=== PATIENT | female | born 1980 | race American Indian/Alaskan Native ===

== ENCOUNTER 2017-01-21 13:50 | Inpatient (IN) | payer OTHER, MEDICAID ==
[2017-01-21] MEDS ORDERED: POLYCILLIN/NS 2 GM/100 ML 2 GM/100 ML BAG IV ONE (15:42)
[2017-01-21] MEDS ORDERED: BRETHINE SUB-Q PRN (15:56)
[2017-01-21] MEDS ORDERED: MINERAL OIL PO PRN (15:56)
[2017-01-21] MEDS ORDERED: XYLOCAINE 2% INFILTRATI ONE (15:56)
[2017-01-21] MEDS ORDERED: BRETHINE IVP PRN (15:56)
[2017-01-21] MEDS ORDERED: ePHEDrine SULFATE IV PRN ×2 (15:56→21:26)
[2017-01-21] MEDS ORDERED: SUBLIMAZE IV PRN (15:56)
[2017-01-21] MEDS ORDERED: LACTATED RINGERS 1,000 ML IV SCH (16:00)
[2017-01-21] MEDS ORDERED: PITOCin/NS 30 UNIT/500ML 30 UNITS/500 ML BAG IV SCH (16:00)
[2017-01-21] MEDS ORDERED: PITOCin/NS 20 UNIT/1000ML DRIP 20 UNITS/1,000 ML BAG IV SCH (16:00)
[2017-01-21 16:36] LABS: Hematocrit 29.1 % (30.3-42.9); Hemoglobin 8.9 gm/dl (10.1-14.3); Mean Corpuscular HGB Conc 31 % (30-34); Mean Corpuscular Volume 74 fl (79-97); Platelet Count 184 K/mm3 (140-440); Red Blood Count 3.92 M/mm3 (3.65-5.03); Red Cell Distribution Width 16.3 % (13.2-15.2); White Blood Count 7.2 K/mm3 (4.5-11.0)
[2017-01-21 16:37] LABS: Mean Corpuscular Hemoglobin 23 pg (28-32)
[2017-01-21] MEDS: LACTATED RINGERS 1,000 ML IV SCH ×3 (18:23→22:39)
[2017-01-21] MEDS ORDERED: POLYCILLIN/NS 1 GM/50 ML 1 GM/50 ML BAG IV SCH (19:58)
[2017-01-21] MEDS ORDERED: ePHEDrine SULFATE ONE (20:52)
[2017-01-21] MEDS ORDERED: NARCAN 2 MG/2 ML IV PRN (21:26)
--- NOTE | 2017-01-21 21:26 | Anesthesia Consultation ---
Anesthesia Consult and Med Hx Date of service: 01/21/17 - Airway Anesthetic Teeth Evaluation: Good ROM Head & Neck: Adequate Mental/Hyoid Distance: Adequate Mallampati Class: Class II Intubation Access Assessment: Good - Pulmonary Exam CTA: Yes - Cardiac Exam Cardiac Exam: No Murmur - Pre-Operative Health Status ASA Pre-Surgery Classification: ASA2 Proposed Anesthetic Plan: Epidural - Pulmonary Hx Asthma: No COPD: No Hx Pneumonia: No - Cardiovascular System Hx Hypertension: No - Central Nervous System Hx Seizures: No Hx Psychiatric Problems: No - Endocrine Hx Renal Disease: No Hx End Stage Renal Disease: No Hx Hypothyroidism: No Hx Hyperthyroidism: No - Hematic Hx Anemia: Yes Hx Sickle Cell Disease: No - Other Systems Hx Alcohol Use: No
[2017-01-21] MEDS ORDERED: fentaNYL-BUPIV 2 MCG/ML-0.125% 200 MCG/100 ML BAG EPIDURAL SCH (22:00)
--- NOTE | 2017-01-22 01:50 | History and Physical Report ---
History of Present Illness Date of examination: 01/21/17 Date of admission: 01/21/17 16:44 Chief complaint: My water broke History of present illness: patient is a 36 year old who presents at 41 weeks with complaint of rupture of membranes. Her course was complicated by late presentation to care at 19 weeks. Past History Past Medical History: no pertinent history Past Surgical History: no surgical history Family/Genetic History: none Social history: - Obstetrical History Expected Date of Delivery: 01/15/17 Actual Gestation: 41 Week(s) 0 Day(s) : 5 Para: 4 Hx # Term Pregnancies: 4 Number of Living Children: 4 Medications and Allergies Allergies Allergy/AdvReac Type Severity Reaction Status Date / Time No Known Allergies Allergy Verified 01/21/17 14:23 Home Medications Medication Instructions Recorded Confirmed Last Taken Type Vit-Fe Fumar-FA [ 1 tab PO QDAY 01/21/17 01/21/17 01/19/17 09: 00 History Vitamin] 1 Active Meds: Active Medications Fentanyl (Sublimaze) 100 mcg IV Q2H PRN PRN Reason: Labor Pain Lactated Ringer's (Lactated Ringers) 1,000 mls @ 125 mls/hr IV DIRECT MARY Last Admin: 01/21/17 22:39 Dose: 125 mls/hr Ampicillin Sodium (Polycillin/Ns 1 Gm/50 Ml) 1 gm in 50 mls @ 100 mls/hr IV Q4HR MARY PRN Reason: Protocol Last Admin: 01/21/17 22:40 Dose: 100 mls/hr Lactated Ringer's (Lactated Ringers) 1,000 mls @ 125 mls/hr IV DIRECT MARY Oxytocin/Sodium Chloride (Pitocin/Ns 20 Unit/1000ml Drip) 20 units in 1,000 mls @ 125 mls/hr IV DIRECT MARY Oxytocin/Sodium Chloride (Pitocin/Ns 30 Unit/500ml) 30 units in 500 mls @ 4 mls /hr IV TITR MARY PRN Reason: Protocol Last Titration: 01/21/17 23:45 Dose: 24 mls/hr, 24 mls/hr Fentanyl/Bupivacaine/Sodium Chlor (Fentanyl-Bupiv 2 Mcg/Ml-0.125%) 200 mcg in 100 mls @ 12 mls/hr EPIDURAL TITR MARY PRN Reason: Protocol Last Admin: 01/21/17 21:35 Dose: 12 mls/hr Mineral Oil (Mineral Oil) 30 ml PO QHS PRN PRN Reason: Constipation Review of Systems All systems: negative Genitourinary: normal appearance, leakage of fluid, contractions - Vital Signs Vital signs: Vital Signs Pulse BP 80 110/65 01/21/17 14:04 01/21/17 14:04 Temp Pulse Resp BP Pulse Ox 97.2 F L 78 16 102/63 100 01/21/17 23:00 01/22/17 01:41 01/21/17 23:00 01/22/17 01:41 01/22/17 01:07 - Physical Exam Breasts: Cardiovascular: Regular rate, Normal S1, Normal S2 Lungs: Positive: Clear to auscultation, Normal air movement Abdomen: Positive: normal appearance, soft, normal bowel sounds. Negative: distention, tenderness Vulva: both: normal Vagina: Positive: normal moisture. Negative: discharge Cervix: Negative: lesion, discharge Uterus: Positive: normal size, normal contour Adnexa: both: normal Anus/Rectum: Positive: normal perianal skin, heme negative. Negative: rectal mass, hemorrhoids Extremities: Deep Tendon Reflex Grade: Normal +2 - Obstetrical FHR: auscultation normal Cervical Dilatation: 2 Cervical Effacement Percentage: 50 station: -2 Uterine Contraction Pattern: Irregular Uterine Contraction Intensity: Mild Results Result Diagrams: 01/21/17 16:00 Abnormal lab results 01/21/17 Range/Units 16:00 Hgb 8.9 L (10.1-14.3) gm/dl Hct 29.1 L (30.3-42.9) % MCV 74 L (79-97) fl MCH 23 L (28-32) pg RDW 16.3 H (13.2-15.2) % All other labs normal. Assessment and Plan IUP at 41 weeks with SROM at term. Admit for augmentation of labor. Treat for pos GBS. Anticipate .
--- NOTE | 2017-01-22 01:57 | Procedure Note ---
OB Delivery Note - Delivery Date of Delivery: 01/22/17 Surgeon: SUSHILA JANSEN Estimated blood loss: 100cc - Vaginal Delivery presentation: vertex Delivery position: OA Intrapartum events: PROM->1hr before delivery Delivery induction: none Delivery augmentation: pitocin Delivery monitor: external FHT, external uterine Route of delivery: Delivery placenta: spontaneous Delivery cord: nuchal cord, 3 umbilical vessels Delivery laceration: none Anesthesia: epidural Delivery comments: Viable female delivered over intact perineum with tight nuchal cord clamped and cut on the perineum. Infant delivered and placed on maternal abdomen. Weight 7 pounds 1 ounce. Apgars 8,9. No lacerations. Placenta delivered spontaneously and intact. Uterus explored to remove any remaining membranes. Patient tolerated procedure well. - Infant A at 1 minute: 7 at 5 minutes: 9 Infant Gender: Female (7 pounds 1 ounce)
[2017-01-22] MEDS ORDERED: MOTRIN PO PRN (02:02)
[2017-01-22] MEDS ORDERED: PHENERGAN PR PRN (04:23)
[2017-01-22] MEDS ORDERED: TUCKS PAD TP PRN (04:23)
[2017-01-22] MEDS ORDERED: BENADRYL PO PRN (04:23)
[2017-01-22] MEDS ORDERED: DERMOPLAST TP PRN (04:23)
[2017-01-22] MEDS ORDERED: LANSINOH TP PRN (04:23)
[2017-01-22] MEDS ORDERED: MILK OF MAGNESIA PO PRN (04:23)
[2017-01-22] MEDS ORDERED: ZOFRAN IV PRN (04:23)
[2017-01-22] MEDS ORDERED: DULCOLAX PR PRN (04:23)
[2017-01-22] MEDS ORDERED: TYLENOL PO PRN (04:23)
[2017-01-22] MEDS ORDERED: SODIUM CHLORIDE FLUSH SYRINGE 10 ML IV NR (04:23)
[2017-01-22] MEDS: NORCO 5/325 PO PRN ×2 (07:25→15:22)
[2017-01-22] MEDS ORDERED: PRENATAL VITAMIN PO SCH (10:00)
[2017-01-22 14:32] LABS: Hematocrit 28.1 % (30.3-42.9); Hemoglobin 8.7 gm/dl (10.1-14.3)
[2017-01-22] MEDS: FEOSOL PO SCH ×2 (15:23→22:36)
[2017-01-22] MEDS: MOTRIN PO SCH (20:52)
[2017-01-22] MEDS: COLACE PO SCH (22:37)
[2017-01-23] MEDS: COLACE PO SCH (01:28)
[2017-01-23] MEDS: NORCO 5/325 PO PRN (02:53)
[2017-01-23] MEDS: MOTRIN PO SCH (02:54)
[2017-01-23] MEDS ORDERED: BOOSTRIX IM ONE (06:05)
[2017-01-23 09:02] VITALS: BP 107/59
--- NOTE | 2017-01-23 09:41 | Progress Note ---
Subjective Date of service: 01/23/17 Interval history: 1st day after normal vaginal delivery Patient is in the bed, comfortable. Pain is well controlled with pain meds. Ambulated well. No residual neurological deficit. No anesthesia complications Objective - Constitutional Vitals: Vital Signs - 12hr 01/23/17 01/23/17 01:15 07:35 Temperature 98.6 F 98.2 F Pulse Rate [ 86 82 Right Radial] Respiratory 18 20 Rate Blood Pressure 117/61 107/59 [Right Arm] - Labs CBC & Chem 7: 01/22/17 14:10 Labs: Abnormal lab results 01/22/17 Range/Units 14:10 Hgb 8.7 L (10.1-14.3) gm/dl Hct 28.1 L (30.3-42.9) %
--- NOTE | 2017-01-23 10:49 | Progress Note ---
Assessment and Plan PPD 1 s/p . Doing well. Plan for discharge on today.; Subjective - Subjective Date of service: 01/23/17 Interval history: patient is a 36 year old who presents at 41 weeks with complaint of rupture of membranes. Her course was complicated by late presentation to care at 19 weeks. Patient reports: appetite normal, voiding normally, pain well controlled, ambulating normally [place]: doing well Objective - Vital Signs Latest vital signs: Vital Signs Temp Pulse Resp BP 01/23/17 07:35 98.2 F 82 20 107/59 01/23/17 01:15 98.6 F 86 18 117/61 01/22/17 15:37 98.4 F 84 18 90/64 01/22/17 11:24 98.6 F 76 16 90/40 Intake and Output 01/22/17 01/23/17 01/23/17 22:59 06:59 14:59 Intake Total 240 360 240 Balance 240 360 240 Intake: Oral 240 360 240 Other: Total, Intake Amount 120 120 240 Voiding Method Toilet # Voids Void 1 1 1 - Exam Cardiovascular: Present: Regular rate, Normal S1, Normal S2 Lungs: Present: Clear to auscultation, Normal air movement Abdomen: Present: normal appearance, soft Uterus: Present: fundal height below umbilicus Extremities: Present: normal Incision: Present: normal, dry, intact - Labs Labs: Abnormal lab results 01/22/17 Range/Units 14:10 Hgb 8.7 L (10.1-14.3) gm/dl Hct 28.1 L (30.3-42.9) %
--- NOTE | 2017-01-23 10:52 | Discharge Summary ---
Providers - Providers Date of Admission: 01/21/17 16:44 Date of discharge: 01/23/17 Attending physician: SUSHILA JANSEN Primary care physician: SUSHILA JANSEN Hospitalization Reason for admission: rupture of membranes Delivery: Laceration: none complications: none Discharge diagnosis: IUP at term delivered [place] baby: female Hospital course: Unremarkable Condition at discharge: Good Disposition: DISCHARGED TO HOME OR SELFCARE Plan - Discharge Medications Prescriptions: Ferrous Sulfate [Feosol 325 MG tab] 325 mg PO BID #60 tablet Ibuprofen [Motrin 600 MG tab] 600 mg PO Q6H #40 tablet - Provider Discharge Summary Activity: routine, no sex for 6 weeks, no heavy lifting 4 weeks, no strenuous exercise Diet: routine Instructions: routine Additional instructions: [] Smoking cessation referral if applicable(refer to patient education folder for contact #) [] Refer to [facility]'s [facility] Booklet Call your doctor immediately for: * Fever > 100.5 * Heavy vaginal bleeding ( >1 pad per hour) * Severe persistent headache * Shortness of breath * Reddened, hot, painful area to leg or breast * Drainage or odor from incision. * Keep incision clean and dry at all times and follow doctor's instructions regarding bathing/showering - Follow up plan Follow up: SUSHILA JANSEN MD [Primary Care Provider] - 7 Days
== END 2017-01-23 16:00 | disposition home or self-care (01) | DRG 775 ==
LOC: TRG 13:50 → LD 16:44 → OB 01-22 04:12
PROVIDERS: ADMIT Obstetrics & Gynecology; ATTEND Obstetrics & Gynecology
PROC: 10E0XZZ Delivery of Products of Conception, External Approach (ICD-10-PCS; principal; 2017-01-22)
PROC: 3E0S3CZ (ICD-10-PCS; 2017-01-22)
PROC: 00HU33Z Insertion of Infusion Device into Spinal Canal, Percutaneous Approach (ICD-10-PCS; 2017-01-22)
PROC: 3E0234Z Introduction of Serum, Toxoid and Vaccine into Muscle, Percutaneous Approach (ICD-10-PCS; 2017-01-23)
DX: O42.02 Full-term premature rupture of membranes, onset of labor within 24 hours of rupture (principal); O99.824 Streptococcus B carrier state complicating childbirth; Z3A.41 41 weeks gestation of pregnancy; Z37.0 Single live birth; O99.02 Anemia complicating childbirth; D64.9 Anemia, unspecified; O69.1XX0 Labor and delivery complicated by cord around neck, with compression, not applicable or unspecified; Z23 Encounter for immunization
CPT/HCPCS: 36415; 59025; 85014; 85018; 85027; 86850; 86900; 86901; J0290; J2590; J7120